=== PATIENT | male | born 1985 | race Caucasian/White ===

== ENCOUNTER → 2020-12-11 14:32 | Outpatient (BNVA) | payer SELFPAY | PROVIDERS: Visit Provider Orthopaedic Surgery | DX: M75.41 Impingement syndrome of right shoulder (principal) | CPT/HCPCS: 20610; 99202; J1040 ==

== ENCOUNTER 2021-07-26 11:50 | Outpatient (REF) | payer OTHER, SELFPAY ==
--- NOTE | ~2021-07-26 | XR_ITS ---
EXAMINATION: XR TIBIA AND FIBULA, LEFT CLINICAL INFORMATION: Pain left lower leg COMPARISON: None TECHNIQUE: AP and lateral views of the left tibia and fibula were obtained. FINDINGS: The bones and soft tissues are normal. No fracture. No osseous lesions. XR/XR tibia fibula LT 2V IMPRESSION: Normal left tibia and fibula.
== END 2021-07-26 11:51 | disposition home or self-care (01) ==
LOC: HO.HMGCX 11:50
PROVIDERS: Visit Provider Family Medicine
DX: M79.662 Pain in left lower leg (principal)
CPT/HCPCS: 73590